=== PATIENT | male | born 1960 | race African-American/Black ===

== ENCOUNTER 2023-06-24 13:18 | Emergency (ER) | payer OTHER ==
[2023-06-24 13:31] VITALS: BMI 24.3
[2023-06-24] MEDS ORDERED: ASPIRIN 81 MG CHEWABLE TABLETS PO ONE (14:00)
[2023-06-24 14:50] LABS: BASO % 0.4 % (0-2.0); EOS % 5.5 % (0-4.5); HEMATOCRIT 38.2 % (35.4-49); HEMOGLOBIN 12.9 GM/dL (11.7-16.9); LYMPH % 45.3 % (8-40); MCH 29.6 pg (25.7-33.7); MCHC 33.7 g/dl (32.0-35.9); MEAN CELL VOLUME 87.8 fl (80-96); MONO % 11.2 % (3.8-10.2); NEUT % 37.6 % (42.8-82.8); PLATELET COUNT 245 10^3/uL (134-434); RBC 4.34 M/mm3 (4.00-5.60); RDW 14.6 % (11.9-15.9); WHITE BLOOD COUNT 2.9 K/mm3 (4.0-10.0)
[2023-06-24 14:58] LABS: INR 1.04 (0.83-1.09); PROTHROMBIN TIME (PATIENT) 12.1 SEC (9.7-13.0)
[2023-06-24 15:00] LABS: ACTIVATED PTT 31.4 SECONDS (25.2-36.5)
[2023-06-24 15:18] LABS: ALBUMIN 4.1 g/dl (3.4-5.0); BLOOD UREA NITROGEN 13.2 mg/dL (7-18); CALCIUM 8.9 mg/dL (8.5-10.1)
[2023-06-24 15:21] LABS: CREATININE 1.2 mg/dL (0.55-1.3)
[2023-06-24 15:23] LABS: BILIRUBIN,TOTAL 0.3 mg/dL (0.2-1); TOT PROT 8.3 g/dl (6.4-8.2)
[2023-06-24 15:26] LABS: N-TERMINAL BNP 60.3 pg/ml (5-125)
[2023-06-24] MEDS ORDERED: ASPIRIN 81 MG CHEWABLE TABLETS ONE (16:07)
[2023-06-24 19:11] VITALS: BP 150/87; PULSE 65; RESP 17; TEMP 98.2
== END 2023-06-24 19:28 | disposition home or self-care (01) ==
LOC: JER 13:18
DX: R07.89 Other chest pain (principal); R06.02 Shortness of breath; Z20.822 Contact with and (suspected) exposure to COVID-19
CPT/HCPCS: 0241U-QW; 36415; 71045-TC-FY; 80053; 83880; 84484; 85025; 85610; 85730; 93005; 93010; 99285-25